=== PATIENT | female | born 1985 | race Hispanic/Latino ===

== ENCOUNTER 2023-12-08 23:45 | Emergency (ER) | payer OTHER ==
[2023-12-09] MEDS ORDERED: LIDOCAINE 1% 20 ML MDV ONE (00:14)
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
[2023-12-09] MEDS ORDERED: HYDROCODONE/APAP 5/325 MG TAB ONE (02:11)
[2023-12-09] MEDS ORDERED: IBUPROFEN 200 MG TAB PO ONE (02:11)
[2023-12-09 02:26] VITALS: BP 125/84; TEMP 98.4; O2SAT 98
--- NOTE | 2023-12-09 08:52 | RAD REPORT ---
EXAMINATION: XR KNEE 3 VIEWS RIGHT INDICATION: Female, 38 years old, PAIN TECHNIQUE: 2 views COMPARISON(S): None. FINDINGS: Exam is limited by lack of orthogonal view. No obvious acute fracture or traumatic joint malalignment . Small osseous density adjacent to the fibular styloid appears corticated and may represent remote ligamentous injury. Media l soft tissue swelling. Lack of lateral view precludes assessment for joint effusion. IMPRESSION: Limited exam. No soft tissue swelling, and suspected old lateral ligamentous injury. Correlate with m echanism of injury and physical exam. Consider repeat exam with lateral view. Electronically signed by: Pravin Garcia MD 12/09/2023 12:46 AM CDT RP Due to temporary technical issues with PACS / Fluency reporting system, reports are being signed by the in-house radiologist without review as a courtesy to ensure prompt reporting. The interpreting radiologist is fully responsible for the content of the report. Transcribed Date/Time: 12/09/2023 8:52 AM
--- NOTE | 2023-12-09 09:17 | RAD REPORT ---
EXAM: CT Head and Cervical Spine Without Intravenous Contrast CLINICAL HISTORY: The patient is 38 years old and is Female; PAIN TECHNIQUE: Axial computed tomography images of the head/brain and cervical spine without intravenous contrast. S agittal and coronal reformatted images were created and reviewed. This CT exam was performed using one or more of the fol lowing dose reduction techniques: automated exposure control, adjustment of the mA and/or kV according to patient size, and /or use of iterative reconstruction technique. COMPARISON: No relevant prior studies available. FINDINGS: BRAIN: Unremarkable. No hemorrhage. No significant white matter disease. No edema. VENTRICLES: Unremarkable. No ventriculomegaly. SKULL: No acute fracture. SINUSES: Unremarkable as visualized. No acute sinusitis. MASTOID AIR CELLS: Unremarkable as visualized. No mastoid effusion. VERTEBRAE: Straightening of the normal cervical curvature is present. The vertebral body heights and alignment are maintained. There is no acute fracture. DISCS/SPINAL CANAL/NEURAL FORAMINA: The intervertebral disc spaces are maintained. No spinal canal st enosis. SOFT TISSUES: The soft tissues are normal. LUNG APICES: Unremarkable as visualized. IMPRESSION: 1. No acute intracranial findings. 2. Straightening of the normal cervical curvature is present. Findings may be secondary to patient po sition versus muscle spasm. Electronically signed by: Yue Abdi MD 12/09/2023 01:22 AM T Due to temporary technical issues with PACS / Fluency reporting system, reports are being signed by the in-house radiologist without review as a courtesy to ensure prompt reporting. The interpreting radiologist is fully responsible for the content of the report. Transcribed Date/Time: 12/09/2023 9:17 AM
--- NOTE | 2023-12-09 09:19 | RAD REPORT ---
EXAM: CT Maxillofacial Without Intravenous Contrast CLINICAL HISTORY: The patient is 38 years old and is Female; FACIAL PAIN TECHNIQUE: Axial computed tomography images of the face without intravenous contrast. Sagittal and coronal refor matted images were created and reviewed. This CT exam was performed using one or more of the following dose reduction techniques : automated exposure control, adjustment of the mA and/or kV according to patient size, and/or use of iterative reconstruc tion technique. COMPARISON: No relevant prior studies available. FINDINGS: BONES/JOINTS: Fracture involving the alveolar process of the bilateral maxillary central incisor teet h is noted. Fracture of the root of the the bilateral maxillary central incisor teeth is also noted. The orbital floors and ray are intact. The zygomatic arches and pterygoid plates are intact. The maxilla and mandible are otherwise intact. SOFT TISSUES: Unremarkable. ORBITS: The globes, extraocular muscles, and optic nerve complexes are within normal limits. SINUSES: The paranasal sinuses are clear. No air-fluid levels. NASAL CAVITY/SEPTUM: The nasal bones are intact. IMPRESSION: Fracture of the alveolar process of the bilateral maxillary central incisor teeth along with fracturi ng of the root of the bilateral axillary central incisor teeth. Electronically signed by: Yue Abdi MD 12/09/2023 01:25 AM CDT Due to temporary technical issues with PACS / Fluency reporting system, reports are being signed by the in-house radiologist without review as a courtesy to ensure prompt reporting. The interpreting radiologist is fully responsible for the content of the report. Transcribed Date/Time: 12/09/2023 9:18 AM
== END 2023-12-09 02:20 | disposition home or self-care (01) ==
LOC: ER 23:45
DX: S02.42XA Fracture of alveolus of maxilla, initial encounter for closed fracture (principal); S02.5XXA Fracture of tooth (traumatic), initial encounter for closed fracture; V57.6XXA Passenger in pick-up truck or van injured in collision with fixed or stationary object in traffic accident, initial encounter
CPT/HCPCS: 70450; 72125; 70486; 76377; 73562; 99283; J2001